=== PATIENT | female | born 1990 | race African-American/Black ===

== ENCOUNTER 2021-07-13 12:01 | Emergency (ER) | payer OTHER, MEDICAID ==
[~2021-07-13 12:01] MED LIST: PHENERGAN 25 MG25 M1 PO
== END 2021-07-13 12:12 | disposition left against medical advice (07) ==
LOC: M.ERS 12:01
DX: M54.9 Dorsalgia, unspecified (principal); Z53.21 Procedure and treatment not carried out due to patient leaving prior to being seen by health care provider; W19.XXXA Unspecified fall, initial encounter; Y93.89 Activity, other specified; Y92.89 Other specified places as the place of occurrence of the external cause; Y99.8 Other external cause status

== ENCOUNTER 2021-12-30 15:55 | Emergency (ER) | payer OTHER, MEDICAID ==
[~2021-12-30] VITALS: Ht 167.6 cm; Wt 81.7 kg
[2021-12-30] MEDS ORDERED: BENTYL 10 MG CA10 M1 PO (16:29)
[2021-12-30] MEDS ORDERED: ZOFRAN ODT4 MG DISSOLVE (16:29)
[2021-12-30 16:40] VITALS: BP 139/71
== END 2021-12-30 16:40 | disposition home or self-care (01) ==
LOC: M.ERS 15:55
DX: R11.2 Nausea with vomiting, unspecified (principal); R19.7 Diarrhea, unspecified; G43.909 Migraine, unspecified, not intractable, without status migrainosus; Z88.1 Allergy status to other antibiotic agents